=== PATIENT | male | born 1985 | race Caucasian/White ===

== ENCOUNTER 2017-10-24 12:03 | Emergency (ER) | payer OTHER ==
[~2017-10-24] VITALS: Ht 167.6 cm; Wt 77.1 kg
[~2017-10-24 12:03] MED LIST: AUGMENTIN 875875 MG PO; FLEXERIL PO; NAPROSYN500 MG PO; PERCOCET 5-3251 EACH PO; ZOFRAN4 MG PO
[2017-10-24 13:03] VITALS: BP 124/78
[2017-10-24] MEDS ORDERED: NORCO 5-325 TA1 EACH PO (13:51)
== END 2017-10-24 14:01 | disposition home or self-care (01) ==
LOC: ER 12:03
DX: S82.65XA Nondisplaced fracture of lateral malleolus of left fibula, initial encounter for closed fracture (principal); Z87.891 Personal history of nicotine dependence; V86.55XA Driver of 3- or 4- wheeled all-terrain vehicle (ATV) injured in nontraffic accident, initial encounter; Y93.89 Activity, other specified; Y92.89 Other specified places as the place of occurrence of the external cause; Y99.8 Other external cause status